=== PATIENT | female | born 1955 | race Caucasian/White ===

== ENCOUNTER 2021-07-12 12:27 | Inpatient (IN) | payer MEDICARE, OTHER ==
[~2021-07-12] VITALS: Ht 172.7 cm; Wt 94.3 kg
[~2021-07-12 12:27] MED LIST: AMLODIPINE BESYL5 MG PO; ASPIR 8181 MG PO; CAPTOPRIL50 MG PO; CIPRO500 MG PO; CLINDAMYCIN HC300 MG PO; ISOSORBIDE DINI30 MG PO; NORCO 7.5-3251 EACH PO; SEPTRA DS TABL1 EACH PO; TOPROL PO
[2021-07-12] MEDS ORDERED: ONDANSETRON HCL INJ 2MG/ML 2ML 2 MG/ML VIAL IV STA (12:39)
[2021-07-12] MEDS ORDERED: LIDOCAINE HCL 1% LOCAL INJ 20 ML VIAL INJ ONE (12:45)
[2021-07-12] MEDS ORDERED: Morphine 4mg Syringe 4 MG/ML INJ IV ONE (12:45)
[2021-07-12] MEDS ORDERED: LIDOCAINE HCL 1% LOCAL INJ 20 ML VIAL ONE (13:12)
[2021-07-12] MEDS ORDERED: PROPOFOL IV EMULSION 10 MG/ML 20 ML VIAL IV ONE (13:30)
[2021-07-12] MEDS ORDERED: PROPOFOL IV EMULSION 10 MG/ML 20 ML VIAL ONE (13:48)
[2021-07-12 15:00] LABS: BASOPHILS % 0.4 % (0.0-1.0); EOSINOPHILS # (AUTO) 0.2 (0.0-0.4); EOSINOPHILS % 1.5 % (0.0-6.0); HEMATOCRIT 39.2 % (34.2-44.1); LYMPHOCYTES # (AUTO) 3.6 (1.0-3.2); LYMPHOCYTES % 35.5 % (18.0-39.1); MEAN CORPUSCULAR HEMOGLOBIN 29.6 pg (28-32); MEAN CORPUSCULAR HGB CONC 33.2 g/dL (31-35); MEAN CORPUSCULAR VOLUME 89.3 fL (81-99); MONOCYTES # (AUTO) 0.6 (0.2-0.8); MONOCYTES % 5.8 % (4.4-11.3); NEUTROPHILS # (AUTO) 5.7 (2.1-6.9); NEUTROPHILS % 56.6 % (38.7-80.0); PLATELET COUNT 341 x10e3/uL (140-360); RED BLOOD COUNT 4.39 x10e6/uL (3.6-5.1)
[2021-07-12 15:33] LABS: ALBUMIN 4.3 g/dL (3.5-5.0); ALBUMIN/GLOBULIN RATIO 1.3 (0.8-2.0); ANION GAP 15.2 mmol/L (8-16); CALCIUM 9.5 mg/dL (8.4-10.2); CREATININE, SERUM 0.75 mg/dL (0.57-1.11); POTASSIUM 3.2 mmol/L (3.5-5.1)
[2021-07-12] MEDS ORDERED: IBUPROFEN600 MG PO (16:01)
[2021-07-12] MEDS ORDERED: ONDANSETRON ODT4 MG PO (16:01)
[2021-07-12 16:25] VITALS: BP 126/71
[2021-07-12] MEDS ORDERED: HYDROCHLOROTHIA25 MG PO (16:26)
[2021-07-12] MEDS ORDERED: LISINOPRIL40 MG PO (16:26)
[2021-07-12] MEDS ORDERED: METOPROLOL TART25 MG PO (16:26)
[2021-07-12] MEDS ORDERED: METFORMIN HCL500 M2 PO (16:27)
[2021-07-12] MEDS ORDERED: ATORVASTATIN CA20 MG PO (16:27)
[2021-07-12] MEDS ORDERED: ISOSORBIDE MONO30 MG PO (16:27)
[2021-07-12] MEDS: ATORVASTATIN 20 MG TAB PO SCH (17:50)
[2021-07-12] MEDS: HYDROCODONE/APAP 5MG-325MG TAB PO PRN ×2 (17:50→22:19)
[2021-07-12] MEDS: LISINOPRIL 20 MG TAB PO SCH (17:50)
[2021-07-12] MEDS: METFORMIN HCL 500 MG TAB CR PO SCH (17:51)
[2021-07-12] MEDS: Morphine 2mg Syringe 2 MG/ML SYR IV PRN (19:40)
[2021-07-12 20:00] VITALS: BP 112/67
[2021-07-12 20:17] VITALS: BP 112/67
[2021-07-12] MEDS: MELATONIN 5 MG TABLET PO PRN (22:19)
[2021-07-13] VITALS (8 sets, daily range): BP systolic 117–144; BP diastolic 54–93
[2021-07-13] MEDS: Morphine 2mg Syringe 2 MG/ML SYR IV PRN ×2 (03:01→07:56)
[2021-07-13] MEDS: ISOSORBIDE MONONITRATE 30 MG TAB CR PO SCH (09:00)
[2021-07-13] MEDS: METFORMIN HCL 500 MG TAB CR PO SCH ×2 (09:00→17:02)
[2021-07-13] MEDS: AMLODIPINE BESYLATE 5 MG TAB PO SCH (09:00)
[2021-07-13] MEDS: LISINOPRIL 20 MG TAB PO SCH ×2 (09:00→20:02)
[2021-07-13] MEDS: METOPROLOL TARTRATE 25 MG TAB PO SCH (09:00)
[2021-07-13] MEDS ORDERED: POTASSIUM CHLORIDE 20 MEQ TAB CR PO PRN (09:00)
[2021-07-13] MEDS: HYDROCHLOROTHIAZIDE 25 MG TAB PO SCH (09:00)
[2021-07-13 09:17] LABS: INR 0.96; PROTHROMBIN TIME 13.5 seconds (11.9-14.5)
[2021-07-13 09:18] LABS: PARTIAL THROMBOPLASTIN TIME 32.2 seconds (23.8-35.5)
[2021-07-13 10:20] LABS: ANION GAP 16.4 mmol/L (8-16); CALCIUM 8.8 mg/dL (8.4-10.2); CREATININE, SERUM 0.62 mg/dL (0.57-1.11); POTASSIUM 3.4 mmol/L (3.5-5.1)
[2021-07-13] MEDS ORDERED: TRANEXAMIC ACID 1,000 MG/10 ML ML ONE (10:55)
[2021-07-13] MEDS ORDERED: Vancomycin IV 1 GM VIAL ONE (10:55)
[2021-07-13] MEDS ORDERED: Vancomycin IV 500 MG ONE (10:55)
[2021-07-13] MEDS ORDERED: SODIUM CHLORIDE 0.9% 500ML 500 ML ONE (10:56)
[2021-07-13] MEDS ORDERED: ROPIVACAINE 246.25 MG, EPINEPHRINE HCL 1:1000 1ML 0.5 MG, CLONIDINE HCL 0.08 MG, KETORO... INJ ONE ×5 (12:00)
[2021-07-13] MEDS ORDERED: EPHEDRINE SULFATE INJ 50 MG/ML VIAL ONE (12:53)
[2021-07-13] MEDS ORDERED: ACETAMINOPHEN 1000 MG/100 ML 100 ML IV ONE (12:54)
[2021-07-13] MEDS ORDERED: LIDOCAINE HCL 2% LOCAL INJ 5 ML SDV VIAL INJ ONE (13:24)
[2021-07-13] MEDS ORDERED: ONDANSETRON HCL INJ 2MG/ML 2ML 2 MG/ML VIAL ONE (13:24)
[2021-07-13] MEDS ORDERED: PROPOFOL IV EMULSION 10 MG/ML 20 ML VIAL ONE (13:24)
[2021-07-13] MEDS ORDERED: NEOSTIGMINE 1 MG/ML 10ML VIAL ONE (13:24)
[2021-07-13] MEDS ORDERED: POVIDONE IODINE 0.05% 0.05 % ML PO ONE (13:24)
[2021-07-13] MEDS ORDERED: ROCURONIUM BROMIDE 10 MG/ML 5ML VIAL IV ONE (13:24)
[2021-07-13] MEDS ORDERED: SEVOFLURANE INHAL SOLN 250 ML PEN BTL ONE (13:24)
[2021-07-13] MEDS ORDERED: GLYCOPYRROLATE INJ 0.2 MG/ML VIAL ONE (13:24)
[2021-07-13] MEDS ORDERED: DEXAMETHASONE SOD PHOS INJ 4 MG/ML SDV ONE (13:24)
[2021-07-13] MEDS ORDERED: KETOROLAC TROMETHAMINE 30 MG/ML VIAL ONE (13:24)
[2021-07-13] MEDS ORDERED: FENTANYL CITRATE/PF 100MCG/2 ML INJ ONE (13:36)
[2021-07-13] MEDS ORDERED: MIDAZOLAM HCL 2 MG/2 ML VIAL ONE (13:36)
[2021-07-13] MEDS ORDERED: KETOROLAC TROMETHAMINE 30 MG/ML VIAL IV PRN (15:30)
[2021-07-13 16:32] LABS: BASOPHILS % 0.2 % (0.0-1.0); EOSINOPHILS % 0.1 % (0.0-6.0); HEMATOCRIT 34.8 % (34.2-44.1); HEMOGLOBIN 11.8 g/dL (12.0-16.0); LYMPHOCYTES # (AUTO) 0.7 (1.0-3.2); LYMPHOCYTES % 5.5 % (18.0-39.1); MEAN CORPUSCULAR HEMOGLOBIN 29.9 pg (28-32); MEAN CORPUSCULAR HGB CONC 33.9 g/dL (31-35); MEAN CORPUSCULAR VOLUME 88.1 fL (81-99); MONOCYTES # (AUTO) 0.2 (0.2-0.8); MONOCYTES % 1.5 % (4.4-11.3); NEUTROPHILS # (AUTO) 12.1 (2.1-6.9); NEUTROPHILS % 92.1 % (38.7-80.0); PLATELET COUNT 262 x10e3/uL (140-360); RED BLOOD COUNT 3.95 x10e6/uL (3.6-5.1)
[2021-07-13 16:51] LABS: ANION GAP 16.2 mmol/L (8-16); CALCIUM 8.2 mg/dL (8.4-10.2); CREATININE, SERUM 0.75 mg/dL (0.57-1.11); POTASSIUM 3.2 mmol/L (3.5-5.1)
[2021-07-13] MEDS: CELECOXIB 200 MG CAP PO SCH (17:02)
[2021-07-13] MEDS: ATORVASTATIN 20 MG TAB PO SCH (20:02)
[2021-07-13] MEDS: MELATONIN 5 MG TABLET PO PRN (20:59)
[2021-07-13] MEDS: ACETAMINOPHEN 1000 MG/100 ML IV SCH (23:03)
[2021-07-14] VITALS: BP 113/53
[2021-07-14] MEDS: ACETAMINOPHEN 1000 MG/100 ML IV SCH (01:57)
[2021-07-14] MEDS: Morphine 2mg Syringe 2 MG/ML SYR IV PRN (02:41)
[2021-07-14 04:00] VITALS: BP 112/54
[2021-07-14 05:22] LABS: BASOPHILS % 0.1 % (0.0-1.0); EOSINOPHILS % 0.1 % (0.0-6.0); HEMATOCRIT 29.5 % (34.2-44.1); HEMOGLOBIN 9.9 g/dL (12.0-16.0); LYMPHOCYTES # (AUTO) 0.8 (1.0-3.2); LYMPHOCYTES % 8.2 % (18.0-39.1); MEAN CORPUSCULAR HEMOGLOBIN 29.5 pg (28-32); MEAN CORPUSCULAR HGB CONC 33.6 g/dL (31-35); MEAN CORPUSCULAR VOLUME 87.8 fL (81-99); MONOCYTES # (AUTO) 0.6 (0.2-0.8); MONOCYTES % 5.6 % (4.4-11.3); NEUTROPHILS # (AUTO) 8.8 (2.1-6.9); NEUTROPHILS % 85.5 % (38.7-80.0); PLATELET COUNT 225 x10e3/uL (140-360); RED BLOOD COUNT 3.36 x10e6/uL (3.6-5.1)
[2021-07-14 05:58] LABS: ANION GAP 12.4 mmol/L (8-16); CALCIUM 8.4 mg/dL (8.4-10.2); CREATININE, SERUM 1.03 mg/dL (0.57-1.11); POTASSIUM 3.4 mmol/L (3.5-5.1)
[2021-07-14] MEDS: CELECOXIB 200 MG CAP PO SCH ×2 (08:00→16:46)
[2021-07-14 08:01] VITALS: BP 137/73
[2021-07-14] MEDS: ISOSORBIDE MONONITRATE 30 MG TAB CR PO SCH (09:00)
[2021-07-14] MEDS: METFORMIN HCL 500 MG TAB CR PO SCH ×2 (09:00→16:46)
[2021-07-14] MEDS ORDERED: ASPIRIN 81 MG CHEW TAB PO SCH (09:00)
[2021-07-14] MEDS: HYDROCHLOROTHIAZIDE 25 MG TAB PO SCH (09:00)
[2021-07-14] MEDS: LISINOPRIL 20 MG TAB PO SCH (09:00)
[2021-07-14] MEDS: AMLODIPINE BESYLATE 5 MG TAB PO SCH (09:00)
[2021-07-14] MEDS: METOPROLOL TARTRATE 25 MG TAB PO SCH (09:00)
[2021-07-14] MEDS: HYDROCODONE/APAP 5MG-325MG TAB PO PRN ×2 (11:57→16:50)
[2021-07-14 12:22] VITALS: BP 103/72
[2021-07-14] MEDS ORDERED: K-DUR10 MEQ PO (13:43)
[2021-07-14] MEDS ORDERED: AMLODIPINE BESYL5 MG PO (13:51)
[2021-07-14 16:18] VITALS: BP 97/56
[2021-07-14] MEDS ORDERED: ACETAMINOPHEN 1000 MG/100 ML IV PRN (19:00)
== END 2021-07-14 18:15 | disposition home health service (06) | DRG 483 ==
LOC: FSED 12:32 → ERHOLD 14:43 → MED/SURG 16:21
PROVIDERS: ADMIT Internal Medicine; ATTEND Internal Medicine
PROC: 0LS30ZZ Reposition Right Upper Arm Tendon, Open Approach (ICD-10-PCS; 2021-07-13)
PROC: 0LM10ZZ Reattachment of Right Shoulder Tendon, Open Approach (ICD-10-PCS; 2021-07-13)
PROC: 0RRJ0J6 Replacement of Right Shoulder Joint with Synthetic Substitute, Humeral Surface, Open Approach (ICD-10-PCS; principal; 2021-07-13 10:30)
DX: S42.301A Unspecified fracture of shaft of humerus, right arm, initial encounter for closed fracture (principal); I10 Essential (primary) hypertension; W18.39XA Other fall on same level, initial encounter; Y93.01 Activity, walking, marching and hiking; I25.10 Atherosclerotic heart disease of native coronary artery without angina pectoris; E78.5 Hyperlipidemia, unspecified; Z20.822 Contact with and (suspected) exposure to COVID-19
CPT/HCPCS: 36415; 71045; 76000; 80048; 80053; 82948; 85025; 85610; 85730; 86850; 86900; 93005; 93306; 94799; 99284; J0171; J0690; J1100; J1885; J2001; J2250; J2270; J2405; J2710; J2795; J3010; J3370; J7040; J7050; U0002